=== PATIENT | male | born 1985 | race Caucasian/White ===

== ENCOUNTER 2019-11-29 07:32 | Emergency (ER) | payer OTHER ==
[~2019-11-29] VITALS: Ht 167.6 cm; Wt 95.3 kg
== END 2019-11-29 11:56 | disposition home or self-care (01) ==
LOC: ER 07:32
DX: K29.70 Gastritis, unspecified, without bleeding (principal); K92.0 Hematemesis; Z03.818 Encounter for observation for suspected exposure to other biological agents ruled out